=== PATIENT | female | born 1935 | race Caucasian/White ===

== ENCOUNTER 2016-12-01 01:27 | Inpatient (IN) | payer MEDICARE ==
--- NOTE | ~2016-12-01 | DS ---
Discharge Summary [facility] [address] [place]. [address] NAME: RUKHSANA ROSE : 37 STATUS : ADM IN [facility]#: [id number] AGE: 81 ADM/REG DATE : 12/01/16 MR#: [id number] REPORT SERV DATE: 12/08/16 DICTATED BY: KARINA BURGESS DATE: 12/07/16 REPORT STATUS : Draft TRANSCRIBED BY: MODL DATE: 12/07/16 ADMISSION DATE: 12/01/2016 DISCHARGE DATE: The patient is a 81-year-old female with a history of heart failure with preserved EF, pulmonary hypertension, and COPD, who presented to the hospital on 12/01/2016, with a complaint of shortness of breath and altered mental status. For further details, please refer to H and P dictated by Dr. Cortez on 12/01/2016. Resumed care of the patient on 12/05/2016. HOSPITAL COURSE: Briefly, the patient was brought to the emergency room with a complaint of altered mental status and shortness of breath. The patient has a history of chronic respiratory failure for which she is on home oxygen. At the time of presentation, the patient was diagnosed with sepsis secondary to pneumonia. She was started on antibiotics vancomycin and meropenem. The patient responded very well to antibiotics with significant improvement and eventual resolution of her sepsis. At the time of my assumption of care, the patient no longer met criteria for sepsis; however, she did meet criteria for SIRS. Also, her antibiotics had been de-escalated to Levaquin 75 mg p.o. daily. Also, at the time of my assumption of care, the patient was no longer altered. She was alert and oriented x3. The patient was continued on the p.o. antibiotics to complete a seven-day course of antibiotic therapy. Also, given a PT evaluation, it was recommended that the patient be discharged to subacute rehab/assisted facility. The patient has been approved for discharge. Also, her oxygen requirement has returned to baseline. Also, as part of her presenting symptoms, the patient was also managed for COPD exacerbation. She was placed on Solu-Medrol, which she responded to appropriately. Her medication has gradually been titrated right now. The patient has been titrated down to prednisone 40 mg p.o. daily. She will be discharged on prednisone 20 mg p.o. daily to complete a five-day course outpatient. On physical exam, her significant improvement in her lung exam has been noted. Given significant improvement in her symptoms, given completion of workup, and given her hemodynamic stability, the patient will be discharged to assisted facility today to complete her antibiotic course and also her course of steroids. Her other chronic medical problems were addressed during her hospitalization here. This plan has been discussed with the patient who voices understanding and is agreeable as agreeable with this plan. Of note, the patient is easily wanting to be discharged today PE. DISCHARGE DIAGNOSES: 1. Chronic obstructive pulmonary disease exacerbation. 2. Acute on chronic respiratory failure. 3. Obstructive sleep apnea on CPAP. 4. Chronic back pain. 5. Obesity. 6. Leukocytosis. DISCHARGE PHYSICAL EXAMINATION: VITAL SIGNS: Blood pressure 156/86 with a pulse of 84, respirations 16, O2 sat of 99% on 2 L nasal cannula, temperature 98.0. GENERAL: The patient is sitting in bed, in no acute distress. Appears stated age. Discharge Summary [address] [address] NAME: RUKHSANA ROSE : 37 STATUS : ADM IN [facility]#: [id number] AGE: 81 ADM/REG DATE : 12/01/16 MR#: [id number] REPORT SERV DATE: 12/08/16 DICTATED BY: KARINA BURGESS DATE: 12/07/16 REPORT STATUS : Draft TRANSCRIBED BY: DANIELITO DATE: 12/07/16 HEENT: Normocephalic, atraumatic. Extraocular motors intact. Oral mucosa moist. NECK: Trachea midline and symmetric. No JVD noted. No thyromegaly present. CHEST: Nontender to palpation. CARDIOVASCULAR: Regular rate and rhythm. I do not appreciate any murmurs. LUNGS: Decreased breath sounds noted globally; however, no rhonchi or wheezes present. ABDOMEN: Obese. Positive bowel sounds. Nontender. Nondistended. EXTREMITIES: No cyanosis. No clubbing. No pitting edema present. NEUROLOGIC: Alert and oriented x3. No focal deficits appreciated. DISCHARGE MEDICATIONS: Amlodipine 5 mg p.o. daily, aspirin 81 mg p.o. daily, carvedilol 3.125 mg p.o. twice a day, Cardura 1 mg p.o. daily, Zantac 150 mg p.o. daily, furosemide 40 mg p.o. daily, Barton one tablet p.o. every six hours p.r.n., pantoprazole 40 mg p.o. daily, Florastor 250 mg p.o. twice a day, spironolactone 25 mg p.o. daily, senna two tablets p.o. at bedtime, prednisone 20 mg p.o. daily for five days, Ventolin two puffs inhalation every four hours p.r.n. IMAGING STUDIES: CT chest without contrast. Impression: Persistent pulmonary hyperinflation with bronchiectasis and bronchovascular thickening similar to the appearance of lung bases November 05. No acute infiltrate in the superior lungs on transthoracic echo. DISPOSITION: The patient will be discharged to assisted facility. ACTIVITY: As tolerated. DIET: Regular diet. Greater than 30 minutes was spent on chart review, dictation of note, medication reconciliation, discussion of care with case management, and coordinating with discharge. RITA/DANIELITO Karina Burgess MD / [id number] CC: MD Kay Bai
--- NOTE | ~2016-12-01 | HP ---
History And Physical [facility] [address] [facility] [place]. [address] NAME: RUKHSANA ROSE : 37 STATUS : ADM IN [facility]#: [id number] AGE: 81 ADM/REG DATE : 12/01/16 MR#: [id number] REPORT SERV DATE: 12/01/16 DICTATED BY: KWABENA CRUZ DATE: 12/01/16 REPORT STATUS : Draft TRANSCRIBED BY: MODL DATE: 12/01/16 DATE OF ADMISSION: 12/01/2016 CHIEF COMPLAINT: Shortness of breath, weakness, and altered mental status. HISTORY OF PRESENT ILLNESS: This is a 81-year-old female, a resident at [facility] facility in [facility] with a history of MRSA pneumonias, ESBL E coli infections, chronic diastolic congestive heart failure, pulmonary hypertension, who was sent to the emergency room at [facility] with the above-mentioned complaint. History is obtained from the patient, but more so from transfer records and reviewing records on the [employer] system. According to available data, Ms. Rose was confused today. She had a fever and was very weak, and given her past history of recurrent pneumonias and urinary tract infection, the patient was sent to the emergency room for further evaluation. In the emergency room, she had a pulmonary infiltrate seen on x-ray, had hypoxemia, metabolic and respiratory alkalosis, uncontrolled hypertension, and sepsis. Hospitalist Service was asked to admit her for further evaluation and treatment. At the time of my evaluation, she denied any chest pain or palpitations, although she was very unreliable due to dementia. She had no idea what had happened today and was unable to give any reliable history. However, she was very conversant and replied appropriately. PAST MEDICAL HISTORY: Significant for history of atrial fibrillation, not on anticoagulation; history of essential hypertension; COPD; CLL; chronic pain; history of ESBL E coli in the past; history of MRSA pneumonias in the past. She also has chronic diastolic congestive heart failure, pulmonary arterial hypertension, nonsustained ventricular tachycardia with a normal ejection fraction as seen on echo. SOCIAL HISTORY: She does not smoke, drink, or use recreational drugs. FAMILY HISTORY: Noncontributory. MEDICATIONS: Her medications at home were reviewed by me in the chart today and reordered by me. REVIEW OF SYSTEMS: As in history of present illness. All other systems were reviewed in detail and are quite unremarkable. PHYSICAL EXAMINATION: GENERAL: This is a pleasant 81-year-old, not in any acute distress. HEENT: Her head is atraumatic, normocephalic. She is alert and awake, but not oriented to time, place, or person. Her pupils are equal, reacting to light and accommodating. External ocular muscles are intact. Membranes are moist and pink. Sclerae are nonicteric. History And Physical [address] [address] NAME: RUKHSANA ROSE : 37 STATUS : ADM IN [facility]#: [id number] AGE: 81 ADM/REG DATE : 12/01/16 MR#: [id number] REPORT SERV DATE: 12/01/16 DICTATED BY: KWABENA CRUZ DATE: 12/01/16 REPORT STATUS : Draft TRANSCRIBED BY: DANIELITO DATE: 12/01/16 NECK: Supple with no jugular venous distention, lymphadenopathy, or thyromegaly. LUNGS: Auscultation of her lungs reveal bibasilar crackles with few expiratory wheezes as well. Trachea appeared to be in the midline. HEART: Auscultation of her heart revealed irregular rate and rhythm with no murmurs, rubs, or gallops appreciated. ABDOMEN: Soft, nontender. Bowel sounds are present. EXTREMITIES: Showed bilateral pitting lower extremity edema with no cyanosis or clubbing. NEUROLOGIC: Appeared to be grossly intact, although she does have some encephalopathy. VITAL SIGNS: Today showed a temperature of 99.3 degrees Fahrenheit, but was 101.8 upon arrival. Her pulse was 123 upon arrival. Respirations were 26 and blood pressure upon arrival was 182/80. Oxygen saturations were 93% on 3 L via nasal cannula. LABORATORY DATA: Reviewed on the [employer] system showed pH of 7.48, pCO2 was 42, PaO2 was 68, and bicarb was 30.1. Her procalcitonin was 0.30. Sodium was 138, potassium 4.4, chloride 94, and CO2 of 32. BUN was 31 with a creatinine of 1.08 and blood glucose was 150. Her alkaline phosphatase was 131. ALT and AST were within normal limits. Troponin today was 0.05. BNP was 207.3. Lactate was 1.9 today. [place] [address]. Hemoglobin, hematocrit, and platelet count were within normal limits. Urinalysis was not done today. Films of the chest x-ray were reviewed by me on the PACS today and interpreted by me. Today's films were compared with prior films available on the PACS as well. There is increased congestion with right middle lobe and right lower lobe infiltrates. There is cardiomegaly as well. A 12-lead EKG done in the emergency room was reviewed and interpreted by me. There is atrial fibrillation with at rate of 100 per minute. IMPRESSION: 1. Shortness of breath. 2. Altered mental status. 3. Sepsis by criteria. 4. Right lower lobe pneumonia, possibly healthcare-associated pneumonia. 5. Hypoxemia. 6. Uncontrolled hypertension. 7. Metabolic and respiratory alkalosis. 8. Atrial fibrillation. 9. Chronic obstructive pulmonary disease. 10.Chronic lymphocytic leukemia. 11.Chronic pain. 12.Chronic diastolic congestive heart failure. 13.Pulmonary arterial hypertension. PLAN: We will admit Ms. Rose to the Hospitalist Service with telemetry for close monitoring. After cultures are drawn, we will start her on empiric IV antibiotics for the healthcare-associated pneumonia. Due to her allergy to penicillin, we will start her on vancomycin and cefepime. We will follow Gram stains, cultures, and adjust accordingly. Meanwhile, we will go ahead and get a procalcitonin, lactate, and cortisol level. We will max up bronchodilator treatments, continue supplemental oxygen therapy, and also control her blood pressure with hydralazine given intravenously on an as needed basis. Meanwhile, we History And Physical [address] [address] NAME: RUKHSANA ROSE : 37 STATUS : ADM IN [facility]#: [id number] AGE: 81 ADM/REG DATE : 12/01/16 MR#: [id number] REPORT SERV DATE: 12/01/16 DICTATED BY: KWABENA CRUZ DATE: 12/01/16 REPORT STATUS : Draft TRANSCRIBED BY: DANIELITO DATE: 12/01/16 will continue her home medications. We will start her on IV fluids. Follow chemistry, electrolytes, and replete as needed. We will also place her on DVT prophylaxis while here. I have discussed above plans with the patient, her questions were answered, and she is agreeable to the above recommendations. Hospitalist Service will be following her during her stay here. /DANIELITO Kwabena Cruz M.D. / [id number] CC: Mark Morrison MD
[2016-12-01 00:39] LABS: BE (BASE EXCESS) 6.7 MEQ/L (0 +/- 2.5); HCO3 (ACTUAL BICARBONATE) 30.1 MEQ/L (23-27); HEMOBLOGIN CONTENT 12.7 G/DL (12-16); INSTRUMENT SERIAL # 8087; METHEMOGLOBIN 0.3 % (0-3); O2 CONTENT 16.1 VOL% (18-24); OPERATOR ID 17589; PCO2 (CO2 TENSION) 42 MMHG (35-45); PO2 (O2 TENSION) 68 MMHG (79-93); SAMPLE Arterial; pH 7.48 (7.37-7.43)
[2016-12-01 00:40] LABS: ALLENS TEST Pos; DEVICE Nasal Cannula @ 6 lp
[~2016-12-01 01:27] MED LIST: *UNABLE1; ALBUTEROL5; ASAB PO; ATROVENTUD INH; BROVANA15 MCG INH; CARDURA1 MG PO; COREG3 PO; FLORASTOR250 MG PO; IMOD PO; K500 PO; L40 PO; MUCINEX600 MG PO; MYCOSCROI TOP; NORCO1 TA1 PO; NORV5 PO; P10 PO; P20 PO; PERCOCET 7.5/321 TAB PO; PRIN20 PO; PROTONIX PO; PROVENTSOL INH; PULRESP.5 INH; SPIRO25 PO; T PO; TESS PO; V5 PO; VENTOLIN HFA INH; X5 PO; ZANTAC150 MG PO; ZOFRAN4 PO
[2016-12-01 01:41] LABS: BASOPHILS 0.2 %; BASOPHILS ABSOLUTE 0.05 10/3/uL (0.0-0.16); EOSINOPHILS 0.6 %; EOSINOPHILS ABSOLUTE 0.17 10/3/uL (0.0-0.53); IMMATURE GRANULOCYTES 0.8 %; IMMATURE GRANULOCYTES ABSOLUTE 0.21 10/3/uL (0.0-0.11); LYMPHOCYTES 24.3 %; LYMPHOCYTES ABSOLUTE 6.42 10/3/uL (0.67-4.30); MEAN CORPUS HGB CONC 32.1 g/dL (32.0-36.0); MEAN CORPUSCULAR HEMOGLOB 27.6 pg (26.0-34.0); MEAN CORPUSCULAR VOLUME 85.8 fL (80-100); MEAN PLATELET VOLUME 10.2 fL (9.2-13.0); MONOCYTES 2.9 %; MONOCYTES ABSOLUTE 0.77 10/3/uL (0.21-1.20); NEUTROPHILS 71.2 %; NEUTROPHILS ABSOLUTE 18.77 10/3/uL (2.02-8.40); PLATELET COUNT 231 10/3/uL (150-400); RBC DISTRIBUTION WIDTH 16.2 % (12.0-16.0)
[2016-12-01 01:44] LABS: INFLUENZA A SCREEN NEGATIVE (NEGATIVE); INFLUENZA B SCREEN NEGATIVE (NEGATIVE)
[2016-12-01 01:45] LABS: ER CBC TAT 0 Hrs 18 Mins; HEMATOCRIT 41.1 % (36.0-48.0); HEMOGLOBIN 13.2 g/dL (12.0-16.0); RED CELL COUNT 4.79 10/6/uL (4.0-5.6); WHITE BLOOD CELLS 26.4 10/3/uL (4.5-10.5)
[2016-12-01 01:46] LABS: MANUAL DIFF NO %
[2016-12-01 01:52] LABS: INTERNATIONAL NORMAL RATI 1.1 UNITS (-); PROTIME (NOT ORD) 14.2 SEC (12.0-14.5)
[2016-12-01 01:53] LABS: PARTIAL THROMBO TIME 30.8 SEC (22.5-37.2)
[2016-12-01 02:02] LABS: ALBUMIN 3.5 G/DL (3.5-5.0); ALKALINE PHOSPHATASE 131 U/L (45-117); BUN (BLOOD UREA NITROGEN) 31 MG/DL (6-23); CHLORIDE, SERUM 94 MMOL/L (96-112); CO2 (CARBON DIOXIDE) 32 MMOL/L (24-34); CREATININE 1.08 MG/DL (0.55-1.02); DIRECT BILIRUBIN 0.2 MG/DL (0.0-0.4); GFR AFRICAN AMERICAN 57 ML/MIN (>=60); GFR NON AFRICAN AMERICAN 49 ML/MIN (>=60); GLUCOSE, SERUM 150 MG/DL (60-99); INDIRECT BILIRUBIN(NOT ORDER) 0.7 MG/DL (0.1-0.9); POTASSIUM, SERUM 4.4 MMOL/L (3.5-5.3); SGOT(AST) 10 U/L (5-40); SGPT(ALT) 23 U/L (5-65); SODIUM, SERUM 138 MMOL/L (135-148); TOTAL BILIRUBIN 0.9 MG/DL (0-1.2)
[2016-12-01 02:03] LABS: CHEST PAIN PROFILE TAT 0 Hrs 36 Mins; TROPONIN I 0.05 NG/ML (<0.05)
[2016-12-01 02:07] LABS: BAND NEUTROPHILS 8 %; ER DIFF TAT 0 Hrs 40 Mins; LYMPHOCYTES 16 %; LYMPHOCYTES ABSOLUTE (CALC) 4.22 10/3/uL (0.67-4.30); MONOCYTES 4 %; MONOCYTES ABSOLUTE (CALC) 1.06 10/3/uL (0.21-1.20); NEUTROPHILS ABSOLUTE (CALC) 21.12 10/3/uL (2.02-8.40); SEGMENTED NEUTROPHIL (0) 72 %; TOTAL NUCLEATED CELLS 100
[2016-12-01 02:08] LABS: GIANT PLATELET FEW; RBC MORPHOLOGY ABN (NORMAL)
[2016-12-01] MEDS ORDERED: NORV5 PO (02:16)
[2016-12-01] MEDS ORDERED: ASAB PO (02:16)
[2016-12-01] MEDS ORDERED: COREG3 PO (02:17)
[2016-12-01] MEDS ORDERED: CARDURA1 MG PO (02:17)
[2016-12-01] MEDS ORDERED: PERCOCET 7.5/321 TAB PO (02:18)
[2016-12-01] MEDS ORDERED: L40 PO (02:18)
[2016-12-01] MEDS ORDERED: FLORASTOR250 MG PO (02:18)
[2016-12-01] MEDS ORDERED: PROTONIX PO (02:19)
[2016-12-01] MEDS ORDERED: ZANTAC 150 PO (02:20)
[2016-12-01] MEDS ORDERED: P20 PO (02:20)
[2016-12-01] MEDS ORDERED: SPIRO25 PO (02:20)
[2016-12-01] MEDS ORDERED: TESS PO (02:20)
[2016-12-01] MEDS ORDERED: BISR PR (02:21)
[2016-12-01] MEDS ORDERED: V2 PO (02:21)
[2016-12-01] MEDS ORDERED: MOMUD PO (02:21)
[2016-12-01] MEDS ORDERED: NORCO1 TA2 PO (02:21)
[2016-12-01] MEDS ORDERED: ZOFRAN4 PO (02:22)
[2016-12-01] MEDS ORDERED: VENTOLIN HFA INH (02:22)
[2016-12-01 07:08] LABS: BASOPHILS 0.1 %; BASOPHILS ABSOLUTE 0.03 10/3/uL (0.0-0.16); EOSINOPHILS 0.4 %; EOSINOPHILS ABSOLUTE 0.09 10/3/uL (0.0-0.53); HEMOGLOBIN 10.9 g/dL (12.0-16.0); IMMATURE GRANULOCYTES ABSOLUTE 0.22 10/3/uL (0.0-0.11); LYMPHOCYTES 16.3 %; LYMPHOCYTES ABSOLUTE 3.65 10/3/uL (0.67-4.30); MEAN CORPUS HGB CONC 32.4 g/dL (32.0-36.0); MEAN CORPUSCULAR HEMOGLOB 27.6 pg (26.0-34.0); MEAN CORPUSCULAR VOLUME 85.1 fL (80-100); MEAN PLATELET VOLUME 9.9 fL (9.2-13.0); MONOCYTES 2.4 %; MONOCYTES ABSOLUTE 0.54 10/3/uL (0.21-1.20); NEUTROPHILS 79.8 %; NEUTROPHILS ABSOLUTE 17.85 10/3/uL (2.02-8.40); PLATELET COUNT 200 10/3/uL (150-400); RBC DISTRIBUTION WIDTH 16.3 % (12.0-16.0); RED CELL COUNT 3.95 10/6/uL (4.0-5.6); WHITE BLOOD CELLS 22.4 10/3/uL (4.5-10.5)
[2016-12-01 07:12] LABS: BUN (BLOOD UREA NITROGEN) 28 MG/DL (6-23); CALCIUM, SERUM 9.2 MG/DL (8.5-10.4); CHLORIDE, SERUM 100 MMOL/L (96-112); CO2 (CARBON DIOXIDE) 29 MMOL/L (24-34); CREATININE 0.89 MG/DL (0.55-1.02); GFR AFRICAN AMERICAN 71 ML/MIN (>=60); GFR NON AFRICAN AMERICAN 62 ML/MIN (>=60); GLUCOSE, SERUM 193 MG/DL (60-99); PHOSPHORUS, SERUM 2.5 MG/DL (2.5-4.5); POTASSIUM, SERUM 4.1 MMOL/L (3.5-5.3); SODIUM, SERUM 138 MMOL/L (135-148)
[2016-12-01 07:13] LABS: HEMATOCRIT 33.6 % (36.0-48.0)
[2016-12-01 07:14] LABS: MANUAL DIFF NO %
[2016-12-01 09:01] LABS: PROCALCITONIN 0.68 ng/mL (<0.5)
[2016-12-01 21:16] LABS: ASCORBIC ACID (UR NOT ORDER) NEG (NEG); BILIRUBIN, URINE NEGATIVE (NEG); ER URINALYSIS TAT 0 Hrs 36 Mins; KETONE, URINE NEGATIVE (NEG); LEUKOCYTE ESTERASE(NOT OR LARGE (NEG); NITRITE (URINE) NEG (NEG); WBC (NOT ORDERED) (RFLEX) 105 (0-5)
[2016-12-02 10:30] LABS: ALBUMIN 2.9 G/DL (3.5-5.0); BUN (BLOOD UREA NITROGEN) 32 MG/DL (6-23); CALCIUM, SERUM 9.4 MG/DL (8.5-10.4); CHLORIDE, SERUM 95 MMOL/L (96-112); CO2 (CARBON DIOXIDE) 28 MMOL/L (24-34); CREATININE 1.08 MG/DL (0.55-1.02); GFR AFRICAN AMERICAN 57 ML/MIN (>=60); GFR NON AFRICAN AMERICAN 49 ML/MIN (>=60); GLUCOSE, SERUM 322 MG/DL (60-99); POTASSIUM, SERUM 3.4 MMOL/L (3.5-5.3); SODIUM, SERUM 136 MMOL/L (135-148)
[2016-12-02 10:34] LABS: BASOPHILS 0.1 %; BASOPHILS ABSOLUTE 0.01 10/3/uL (0.0-0.16); EOSINOPHILS 0 %; HEMATOCRIT 32.8 % (36.0-48.0); HEMOGLOBIN 10.7 g/dL (12.0-16.0); IMMATURE GRANULOCYTES 0.6 %; LYMPHOCYTES 12.8 %; LYMPHOCYTES ABSOLUTE 2.23 10/3/uL (0.67-4.30); MEAN CORPUS HGB CONC 32.6 g/dL (32.0-36.0); MEAN CORPUSCULAR HEMOGLOB 27.4 pg (26.0-34.0); MEAN CORPUSCULAR VOLUME 83.9 fL (80-100); MEAN PLATELET VOLUME 10.2 fL (9.2-13.0); MONOCYTES 1.3 %; MONOCYTES ABSOLUTE 0.22 10/3/uL (0.21-1.20); NEUTROPHILS 85.2 %; NEUTROPHILS ABSOLUTE 14.91 10/3/uL (2.02-8.40); PLATELET COUNT 225 10/3/uL (150-400); RBC DISTRIBUTION WIDTH 15.8 % (12.0-16.0); RED CELL COUNT 3.91 10/6/uL (4.0-5.6); WHITE BLOOD CELLS 17.5 10/3/uL (4.5-10.5)
[2016-12-02 10:35] LABS: MANUAL DIFF NO %
[2016-12-02 11:26] LABS: PLATELET ESTIMATE ADQ (ADEQUATE)
[2016-12-02 11:27] LABS: POLYCHROMASIA 1+ (2-5/OIF) (0-1/OIF); TEARDROP SHAPED RBCS OCC (0-2/OIF)
[2016-12-03 09:52] LABS: BASOPHILS 0 %; EOSINOPHILS 0 %; HEMATOCRIT 31.9 % (36.0-48.0); HEMOGLOBIN 10.6 g/dL (12.0-16.0); IMMATURE GRANULOCYTES 0.4 %; IMMATURE GRANULOCYTES ABSOLUTE 0.07 10/3/uL (0.0-0.11); LYMPHOCYTES 10.6 %; LYMPHOCYTES ABSOLUTE 1.68 10/3/uL (0.67-4.30); MEAN CORPUS HGB CONC 33.2 g/dL (32.0-36.0); MEAN CORPUSCULAR HEMOGLOB 27.7 pg (26.0-34.0); MEAN CORPUSCULAR VOLUME 83.5 fL (80-100); MEAN PLATELET VOLUME 9.7 fL (9.2-13.0); MONOCYTES ABSOLUTE 0.16 10/3/uL (0.21-1.20); NEUTROPHILS ABSOLUTE 13.96 10/3/uL (2.02-8.40); PLATELET COUNT 237 10/3/uL (150-400); RBC DISTRIBUTION WIDTH 15.6 % (12.0-16.0); RED CELL COUNT 3.82 10/6/uL (4.0-5.6); WHITE BLOOD CELLS 15.9 10/3/uL (4.5-10.5)
[2016-12-03 09:53] LABS: MANUAL DIFF NO %
[2016-12-03 10:04] LABS: ALBUMIN 2.9 G/DL (3.5-5.0); CALCIUM, SERUM 9.5 MG/DL (8.5-10.4); CHLORIDE, SERUM 94 MMOL/L (96-112); CO2 (CARBON DIOXIDE) 32 MMOL/L (24-34); CREATININE 1.16 MG/DL (0.55-1.02); GFR AFRICAN AMERICAN 52 ML/MIN (>=60); GFR NON AFRICAN AMERICAN 45 ML/MIN (>=60); GLUCOSE, SERUM 279 MG/DL (60-99); PHOSPHORUS, SERUM 3.6 MG/DL (2.5-4.5); POTASSIUM, SERUM 3.2 MMOL/L (3.5-5.3); SODIUM, SERUM 137 MMOL/L (135-148)
[2016-12-03 10:05] LABS: BUN (BLOOD UREA NITROGEN) 37 MG/DL (6-23)
[2016-12-04 07:05] LABS: BASOPHILS 0.1 %; BASOPHILS ABSOLUTE 0.01 10/3/uL (0.0-0.16); EOSINOPHILS 0 %; HEMATOCRIT 31.3 % (36.0-48.0); HEMOGLOBIN 10.2 g/dL (12.0-16.0); IMMATURE GRANULOCYTES 0.8 %; LYMPHOCYTES 14.2 %; LYMPHOCYTES ABSOLUTE 1.87 10/3/uL (0.67-4.30); MANUAL DIFF NO %; MEAN CORPUS HGB CONC 32.6 g/dL (32.0-36.0); MEAN CORPUSCULAR HEMOGLOB 27.3 pg (26.0-34.0); MEAN CORPUSCULAR VOLUME 83.9 fL (80-100); MEAN PLATELET VOLUME 9.6 fL (9.2-13.0); MONOCYTES 1.7 %; MONOCYTES ABSOLUTE 0.23 10/3/uL (0.21-1.20); NEUTROPHILS 83.2 %; PLATELET COUNT 221 10/3/uL (150-400); RBC DISTRIBUTION WIDTH 15.6 % (12.0-16.0); RED CELL COUNT 3.73 10/6/uL (4.0-5.6); WHITE BLOOD CELLS 13.2 10/3/uL (4.5-10.5)
[2016-12-04 07:11] LABS: ALBUMIN 2.7 G/DL (3.5-5.0); CALCIUM, SERUM 9.2 MG/DL (8.5-10.4); CHLORIDE, SERUM 95 MMOL/L (96-112); CO2 (CARBON DIOXIDE) 31 MMOL/L (24-34); CREATININE 1.17 MG/DL (0.55-1.02); GFR AFRICAN AMERICAN 51 ML/MIN (>=60); GFR NON AFRICAN AMERICAN 44 ML/MIN (>=60); GLUCOSE, SERUM 293 MG/DL (60-99); PHOSPHORUS, SERUM 2.9 MG/DL (2.5-4.5); POTASSIUM, SERUM 3.4 MMOL/L (3.5-5.3); SODIUM, SERUM 138 MMOL/L (135-148); VANCOMYCIN TROUGH 16.7 MCG/ML (10.0-20.0)
[2016-12-04 07:12] LABS: BUN (BLOOD UREA NITROGEN) 42 MG/DL (6-23)
[2016-12-05 06:22] LABS: BASOPHILS 0.1 %; BASOPHILS ABSOLUTE 0.01 10/3/uL (0.0-0.16); EOSINOPHILS 0 %; HEMOGLOBIN 10.7 g/dL (12.0-16.0); IMMATURE GRANULOCYTES 2.1 %; IMMATURE GRANULOCYTES ABSOLUTE 0.22 10/3/uL (0.0-0.11); LYMPHOCYTES 17.1 %; LYMPHOCYTES ABSOLUTE 1.81 10/3/uL (0.67-4.30); MANUAL DIFF NO %; MEAN CORPUS HGB CONC 32.4 g/dL (32.0-36.0); MEAN CORPUSCULAR HEMOGLOB 27.3 pg (26.0-34.0); MEAN CORPUSCULAR VOLUME 84.2 fL (80-100); MEAN PLATELET VOLUME 9.3 fL (9.2-13.0); MONOCYTES 2.9 %; MONOCYTES ABSOLUTE 0.31 10/3/uL (0.21-1.20); NEUTROPHILS 77.8 %; NEUTROPHILS ABSOLUTE 8.23 10/3/uL (2.02-8.40); PLATELET COUNT 211 10/3/uL (150-400); RBC DISTRIBUTION WIDTH 15.4 % (12.0-16.0); RED CELL COUNT 3.92 10/6/uL (4.0-5.6); WHITE BLOOD CELLS 10.6 10/3/uL (4.5-10.5)
[2016-12-05 06:33] LABS: CALCIUM, SERUM 9.5 MG/DL (8.5-10.4); CHLORIDE, SERUM 96 MMOL/L (96-112); CO2 (CARBON DIOXIDE) 32 MMOL/L (24-34); CREATININE 0.91 MG/DL (0.55-1.02); GFR AFRICAN AMERICAN 70 ML/MIN (>=60); GFR NON AFRICAN AMERICAN 60 ML/MIN (>=60); SODIUM, SERUM 137 MMOL/L (135-148)
[2016-12-05 06:34] LABS: BUN (BLOOD UREA NITROGEN) 35 MG/DL (6-23); GLUCOSE, SERUM 210 MG/DL (60-99)
[2016-12-06 06:44] LABS: BASOPHILS 0.2 %; BASOPHILS ABSOLUTE 0.03 10/3/uL (0.0-0.16); EOSINOPHILS 0 %; HEMATOCRIT 34.6 % (36.0-48.0); HEMOGLOBIN 11.4 g/dL (12.0-16.0); IMMATURE GRANULOCYTES 2.2 %; IMMATURE GRANULOCYTES ABSOLUTE 0.28 10/3/uL (0.0-0.11); LYMPHOCYTES 17.4 %; MANUAL DIFF NO %; MEAN CORPUS HGB CONC 32.9 g/dL (32.0-36.0); MEAN CORPUSCULAR HEMOGLOB 27.4 pg (26.0-34.0); MEAN CORPUSCULAR VOLUME 83.2 fL (80-100); MEAN PLATELET VOLUME 9.4 fL (9.2-13.0); MONOCYTES 2.6 %; MONOCYTES ABSOLUTE 0.33 10/3/uL (0.21-1.20); NEUTROPHILS 77.6 %; NEUTROPHILS ABSOLUTE 9.79 10/3/uL (2.02-8.40); PLATELET COUNT 224 10/3/uL (150-400); RBC DISTRIBUTION WIDTH 15.3 % (12.0-16.0); RED CELL COUNT 4.16 10/6/uL (4.0-5.6); WHITE BLOOD CELLS 12.6 10/3/uL (4.5-10.5)
[2016-12-06 07:01] LABS: ALBUMIN 2.9 G/DL (3.5-5.0); CALCIUM, SERUM 9.8 MG/DL (8.5-10.4); CHLORIDE, SERUM 93 MMOL/L (96-112); CO2 (CARBON DIOXIDE) 34 MMOL/L (24-34); CREATININE 1.01 MG/DL (0.55-1.02); GFR AFRICAN AMERICAN 61 ML/MIN (>=60); GFR NON AFRICAN AMERICAN 53 ML/MIN (>=60); GLUCOSE, SERUM 177 MG/DL (60-99); POTASSIUM, SERUM 3.5 MMOL/L (3.5-5.3); SGOT(AST) 8 U/L (5-40); SGPT(ALT) 17 U/L (5-65); SODIUM, SERUM 138 MMOL/L (135-148); TOTAL PROTEIN 5.9 G/DL (6.0-8.5)
[2016-12-06 07:05] LABS: ALKALINE PHOSPHATASE 88 U/L (45-117); BUN (BLOOD UREA NITROGEN) 39 MG/DL (6-23); TOTAL BILIRUBIN 0.4 MG/DL (0-1.2)
[2016-12-07 06:58] LABS: BASOPHILS 0.2 %; BASOPHILS ABSOLUTE 0.03 10/3/uL (0.0-0.16); EOSINOPHILS 0 %; HEMOGLOBIN 10.9 g/dL (12.0-16.0); IMMATURE GRANULOCYTES 2.4 %; IMMATURE GRANULOCYTES ABSOLUTE 0.37 10/3/uL (0.0-0.11); LYMPHOCYTES 23.2 %; LYMPHOCYTES ABSOLUTE 3.51 10/3/uL (0.67-4.30); MEAN CORPUS HGB CONC 32.1 g/dL (32.0-36.0); MEAN CORPUSCULAR HEMOGLOB 26.5 pg (26.0-34.0); MEAN CORPUSCULAR VOLUME 82.7 fL (80-100); MEAN PLATELET VOLUME 9.6 fL (9.2-13.0); MONOCYTES 3.8 %; MONOCYTES ABSOLUTE 0.57 10/3/uL (0.21-1.20); NEUTROPHILS 70.4 %; NEUTROPHILS ABSOLUTE 10.67 10/3/uL (2.02-8.40); PLATELET COUNT 234 10/3/uL (150-400); RBC DISTRIBUTION WIDTH 15.7 % (12.0-16.0); RED CELL COUNT 4.11 10/6/uL (4.0-5.6); WHITE BLOOD CELLS 15.2 10/3/uL (4.5-10.5)
[2016-12-07 06:59] LABS: MANUAL DIFF NO %
[2016-12-07 07:11] LABS: A/G RATIO 0.9 (0.7-1.9); ALBUMIN 2.7 G/DL (3.5-5.0); ALKALINE PHOSPHATASE 91 U/L (45-117); BUN (BLOOD UREA NITROGEN) 46 MG/DL (6-23); CALCIUM, SERUM 9.5 MG/DL (8.5-10.4); CHLORIDE, SERUM 92 MMOL/L (96-112); CO2 (CARBON DIOXIDE) 31 MMOL/L (24-34); CREATININE 1.09 MG/DL (0.55-1.02); GFR AFRICAN AMERICAN 56 ML/MIN (>=60); GFR NON AFRICAN AMERICAN 48 ML/MIN (>=60); GLOBULIN 2.9 G/DL (2.5-4.1); GLUCOSE, SERUM 282 MG/DL (60-99); SGPT(ALT) 18 U/L (5-65); SODIUM, SERUM 135 MMOL/L (135-148); TOTAL BILIRUBIN 0.2 MG/DL (0-1.2); TOTAL PROTEIN 5.6 G/DL (6.0-8.5)
[2016-12-07 07:12] LABS: SGOT(AST) 12 U/L (5-40)
[2016-12-07] MEDS ORDERED: D.O.S.100 MG PO (14:57)
[2016-12-07] MEDS ORDERED: SENTAB PO (14:58)
[2017-01-15] MEDS ORDERED: DUONEB INH (11:46)
[2017-01-15] MEDS ORDERED: MUCINEX1200 MG PO (11:47)
[2017-01-15] MEDS ORDERED: BROVANA15 MCG INH (11:47)
[2017-01-15] MEDS ORDERED: BUDESONIDE INH (11:51)
[2017-01-15] MEDS ORDERED: ACIDOPHILU2 PO (11:53)
[2017-01-15] MEDS ORDERED: P5 PO (11:54)
[2017-01-15] MEDS ORDERED: HUMALOG SC (11:55)
[2017-01-15] MEDS ORDERED: LEVEMIR SC ×2 (11:56→11:57)
[2017-01-15] MEDS ORDERED: LOVENOX40 SC (11:57)
[2017-01-15] MEDS ORDERED: MIRALAX POWDER1 PKT PO (12:01)
[2017-01-21] MEDS ORDERED: VIBRATAB100 MG PO (15:52)
[2017-01-21] MEDS ORDERED: P10 PO (15:53)
[2017-01-21] MEDS ORDERED: KDUR10 PO (15:53)
[2017-01-21] MEDS ORDERED: MONUROL PO (15:53)
[2017-01-21] MEDS ORDERED: SEROQUEL25 PO (15:54)
[2017-01-21] MEDS ORDERED: CARDCD120 PO (15:54)
[2017-01-21] MEDS ORDERED: MYCOSCROI TOP (15:55)
[2017-01-21] MEDS ORDERED: DUONEB INH (15:59)
== END 2016-12-07 22:05 | disposition home health service (06) | DRG 871 ==
LOC: ER 01:27 → 2SO 03:16
PROVIDERS: Emergency Medicine; Hospitalist; Internal Medicine Pulmonary Disease
DX: A41.9 Sepsis, unspecified organism (principal); J96.21 Acute and chronic respiratory failure with hypoxia; I47.2 Ventricular tachycardia; E87.4 Mixed disorder of acid-base balance; C91.10 Chronic lymphocytic leukemia of B-cell type not having achieved remission; I11.0 Hypertensive heart disease with heart failure; J18.9 Pneumonia, unspecified organism; G92 Toxic encephalopathy; I50.32 Chronic diastolic (congestive) heart failure; J44.1 Chronic obstructive pulmonary disease with (acute) exacerbation; R65.20 Severe sepsis without septic shock; I48.2 Chronic atrial fibrillation; G89.29 Other chronic pain; E66.9 Obesity, unspecified; G47.33 Obstructive sleep apnea (adult) (pediatric); E11.9 Type 2 diabetes mellitus without complications; M54.9 Dorsalgia, unspecified; I27.2 Other secondary pulmonary hypertension; Z87.01 Personal history of pneumonia (recurrent); Z68.38 Body mass index [BMI] 38.0-38.9, adult
CPT/HCPCS: 36600; 71010; 71250; 80048; 80053; 80069; 80076; 80202; 81001; 82533; 82805; 82962; 83036; 83605; 83735; 83880; 84100; 84145; 84484; 85025; 85610; 85730; 87040; 87086; 87804; 93005; 94640; 96365; 96375; 97110-GP; 97116-GP; 97161-GP; 99285; A9270-GY; C8929; G8978-CK-GP; G8979-CJ-GP; J0360; J0692; J2185; J2930; J3370; Q9957

== ENCOUNTER 2017-01-03 07:50 | Inpatient (IN) | payer MEDICARE ==
--- NOTE | ~2017-01-03 | DS ---
Discharge Summary [facility] [address] [place]. [address] NAME: RUKHSANA ROSE : 37 STATUS : DIS IN PAT#: [id number] AGE: 81 ADM/REG DATE : 01/03/17 MR#: [id number] REPORT SERV DATE: 01/13/17 DICTATED BY: BUBBA SALINAS DATE: 01/12/17 REPORT STATUS : Draft TRANSCRIBED BY: MODL DATE: 01/12/17 ADMISSION DATE: 01/03/2017 DISCHARGE DATE: 01/12/2017 DISCHARGE DIAGNOSES: 1. Community-acquired pneumonia with sputum positive for Bordetella bronchiseptica. 2. Acute exacerbation of chronic obstructive pulmonary disease. 3. Acute exacerbation of bronchiectasis. 4. Oropharyngeal dysphagia. 5. Chronic hypoxemic respiratory failure, on O2. 6. Chronic diastolic heart failure. 7. Chest pain, thought to be musculoskeletal, in part if not whole. 8. Symptomatic extended spectrum beta-lactamase Escherichia coli urinary tract infection. 9. Chronic lymphocytic leukemia, by CBC. 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 11.Monoclonal gammopathy. IgG kappa. 12.Type 2 diabetes. 13.Hypertension, systemic. 14.Hypertension, pulmonary. 15.Atrial fibrillation, not on anticoagulation because of high HAS-BLED score. 16.Coronary artery disease by CT imaging. 17.Chronic pain syndrome. 18.Anxiety. 19.Panic. 20.Venous insufficiency. 21.Osteoporosis with compression fracture history. OPERATIONS AND PROCEDURES: None. PRESENT ILLNESS: This is a 81-year-old white female, who was triaged in the emergency room on 01/03/2017 at 0659 hours complaining of rib pain. Her admission vital signs; blood pressure 151/83, temperature 97.7, pulse 82, respirations 20, and O2 saturation 91% on 3 L. In the emergency room, her evaluation included a urinalysis which was suspicious for a urinary tract infection. A chest x-ray was done that showed central venous congestion and bibasilar atelectasis. Given her comorbidities, it was felt that admission was warranted. She was referred to the Hospitalist Service. She was seen by Dr. Alexa Valladares and admitted as described on admission history and physical examination. Additional history included rib pain with coughing. She had a cough with copious purulent sputum and subjective fever. In addition, she had some dysuria. Additional history included a hospitalization here 11/05/2016 to 11/09/2016 with primary diagnoses of acute L1 compression fracture, acute encephalopathy, and ESBL E. coli urinary tract infection versus colonization. Discharge Summary [place] [address] [place]. [address] NAME: RUKHSANA ROSE : 37 STATUS : DIS IN PAT#: [id number] AGE: 81 ADM/REG DATE : 01/03/17 MR#: [id number] REPORT SERV DATE: 01/13/17 DICTATED BY: BUBBA SALINAS DATE: 01/12/17 REPORT STATUS : Draft TRANSCRIBED BY: MODL DATE: 01/12/17 She was here 12/01/2016 to 12/07/2016 with diagnoses: 1. COPD exacerbation. 2. Acute on chronic respiratory failure. ADDITIONAL HISTORY: Per Dr. Valladares. PHYSICAL EXAMINATION: Per Dr. Valladares. ADMISSION LABORATORY: Per Dr. Valladares. HOSPITAL COURSE: She was admitted by Dr. Valladares with, 1. Bilateral rib cage pain. 2. Cough with purulent sputum and suspected pneumonia. 3. Urinary tract infection. 4. Chronic diastolic heart failure. 5. All of this occurring in the setting of the above-mentioned comorbidities. She was admitted to [address] [place] [address]. Cultures were obtained. Because of history of ESBL infection, she was started on meropenem. Additional imaging was ordered. Her hospitalist care was by Dr. Gallardo through 01/08/2017 as outlined on interim summary dictated on that date. Her subsequent hospital care from 12/09/2016 to discharge was by the undersigned. A CTA of her chest showed no pulmonary embolus. There was interval worsening of bibasilar airspace consolidation concerning for pneumonia or aspiration as opposed to atelectasis. There was severely enlarged pulmonary trunk suggesting pulmonary hypertension. There was three-vessel coronary atherosclerosis. Culture of her urine subsequently grew ESBL E. coli. One blood culture was no growth. A second blood culture grew Coag-negative Staph, thought to be a contaminant. A sputum done on 01/03/2017 had a sparse growth of Bordetella bronchiseptica. This was also sensitive to meropenem. During the course of her hospitalization, she was treated for seven days with meropenem, O2, bronchodilator therapy, Mucinex, and prednisone. During this time, her pulmonary symptoms improved; and by the time of discharge, she had a lingering cough, but minimal sputum production. O2 sats were satisfactory at 97% on 2 L. Of note, a procalcitonin was 0.06 on admission and subsequent procalcitonins were essentially the same. A C-reactive protein was 7.3. A followup chest x-ray done on the 01/09/2017 showed only bibasilar atelectatic changes. From previous CT imaging, she is known to have bronchiectasis. I had concerns regarding her swallow function. A modified barium swallow study did demonstrate some mild oropharyngeal dysphagia with flash penetration with thin liquids. She also exhibited prolonged chewing Discharge Summary [address] [place]. [address] NAME: RUKHSANA ROSE : 37 STATUS : DIS IN PAT#: [id number] AGE: 81 ADM/REG DATE : 01/03/17 MR#: [id number] REPORT SERV DATE: 01/13/17 DICTATED BY: BUBBA SALINAS DATE: 01/12/17 REPORT STATUS : Draft TRANSCRIBED BY: DANIELITO DATE: 01/12/17 with a cracker. She was able to protect her airway. It was recommended she have mechanical soft consistencies, chopped meats with gravy, thin liquids, and crushed meds in pudding. She received an adequate course of meropenem for her E. coli ESBL urinary tract infection as well as her pulmonary diagnoses as described. On review, it was noted that she had an elevated white blood cell count with a predominance of lymphocytes. It was thought she likely had CLL. An immunofixation was checked with findings as noted above. Gammaglobulin levels were checked and were all low; IgG 239, IgA less than 8, and IgM 19. [facility] consultation was obtained. She was seen by Dr. Ibarra. He noted she had been seen previously by Dr. Gavino Figueroa at [facility] several years ago, but that she did not keep outpatient followup. His impression was: 1. CLL. No indication for therapy at this time. 2. Hypogammaglobulinemia with recurrent infections and bronchiectasis. He thought she might benefit from IVIG and that this would be pursued in the office setting. It was not felt that she would benefit from an acute dose of IVIG. She continued to have some chest pain with coughing. She had initially been given OxyContin and gabapentin by Dr. Gallardo. This did not provide significant relief. When given p.r.n. hydrocodone, she obtained better relief and was able to rest. Troponins in hospital were 0.06, 0.05, 0.06, and 0.07; and given her clinical findings, it was not felt that an ischemia evaluation was indicated at this time. She was seen by Physical Therapy. jail facility discharge was recommended. This was discussed with the patient and with her caregiver, her granddaughter. It was elected to pursue [facility] at discharge. I also discussed code status with the patient and she wanted to be full code. I discussed the possibility of home with hospice, which she did not want to pursue at this time. Today, it is felt, she has achieved a level of improvement and stability where she could be safely transferred to [facility]. DISCHARGE MEDICATIONS: Her discharge medications will be Lovenox 40 mg subcu daily, Mucinex 1200 mg every 12 hours, NovoLog correction 2 before meals, Levemir 8 units at bedtime, hydrocodone 7.5/325 every 6 hours as needed for pain, prednisone 10 mg for two days and 5 mg for two days and then stop, Brovana nebs q.12 hours, budesonide nebs 0.5 mg q.12 hours, DuoNebs q.4 hours, Tylenol 650 mg every 4 hours as needed, artificial tears as needed, hypoglycemia protocol with glucagon 1 mg IM or glucose tabs 3, Zofran 4 mg p.o. or sublingually as needed for nausea, MiraLAX and milk of magnesia as needed for constipation, Norvasc 5 mg daily for systolic blood pressure greater than 150, Protonix 40 mg before breakfast and supper, aspirin 81 mg daily, Florastor 250 mg twice daily, Lasix 40 mg daily for edema, O2 to keep sats greater than or equal to 92. It was recommended that her speech therapy diet recommendations be followed and that she have speech therapy, physical therapy, and occupational therapy at rehab. Discharge Summary [facility] [address] [place]. [address] NAME: RUKHSANA ROSE : 37 STATUS : DIS IN PAT#: [id number] AGE: 81 ADM/REG DATE : 01/03/17 MR#: [id number] REPORT SERV DATE: 01/13/17 DICTATED BY: BUBBA SALINAS DATE: 01/12/17 REPORT STATUS : Draft TRANSCRIBED BY: DANIELITO DATE: 01/12/17 Discharge time greater than 30 minutes. DD/DANIELITO Bubba Salinas M.D. / [id number] CC: Bubba Salinas M.D. [facility]
--- NOTE | ~2017-01-03 | CN ---
Consultation Report [facility] [address] [place]. [address] NAME: RUKHSANA ROSE : 37 STATUS : ADM IN [facility]#: [id number] AGE: 81 ADM/REG DATE : 01/03/17 MR#: [id number] REPORT SERV DATE: 01/11/17 DICTATED BY: MINO PUTNAM DATE: 01/11/17 REPORT STATUS : Draft TRANSCRIBED BY: MODL DATE: 01/11/17 CONSULTATION DATE OF CONSULTATION: REASON FOR REFERRAL: CLL and immunodeficiency. HISTORY OF PRESENT ILLNESS: Ms. Rose is a 81-year-old woman. She was seen by my partner, Dr. Anderson Figueroa at [facility] several years ago. She did not keep outpatient followup. She is now admitted for the third time and is here with respiratory infections. She does have COPD that has worsened. I personally reviewed her CT scan which shows bronchiectasis. She has a history of CLL for many years. She was unable to give me the precise duration. This however has been quite stable and she has never required treatment. Currently, her white blood cell count is 24.9, hemoglobin 11.5, and platelets 273,000. Dr. Salinas checked the immunoglobulin levels. Her IgG is 239, IgA undetectable, and IgM 19, which were all low and outside the normal limit. She has heart failure that is diastolic. The diabetes has been poorly controlled. REVIEW OF SYSTEMS: Positive for fatigue and dyspnea and is otherwise negative. PHYSICAL EXAMINATION: GENERAL: Reveals an obese woman in no acute distress. HEART: She has a regular rate and rhythm. LUNGS: There are coarse breath sounds and wheezes bilaterally. DATA REVIEW: As per the HPI. I personally reviewed her CT which showed bronchiectasis and reviewed all of her hospital records that were summarized above as well as old laboratory studies and x-rays in the computer. ASSESSMENT: 1. CLL. No indication for therapy at this time. 2. Hypogammaglobulinemia. She certainly has had recurrent infections with evidence of bronchiectasis. This is the type of patient who can sometimes benefit from IVIG replacement. My recommendation is that we see her in the office to consider this. An acute dose of IVIG would not shorten her current illness. LAURY Consultation Report [facility] [address] [place] [address] NAME: RUKHSANA ROSE : 37 STATUS : ADM IN PAT#: [id number] AGE: 81 ADM/REG DATE : 01/03/17 MR#: [id number] REPORT SERV DATE: 01/11/17 DICTATED BY: MINO PUTNAM DATE: 01/11/17 REPORT STATUS : Draft TRANSCRIBED BY: MODL DATE: 01/11/17 Mino Putnam M.D. / [id number] CC: Jaime Salinas M.D.
--- NOTE | ~2017-01-03 | IDS ---
Interim Discharge Summary [facility] [address] [place]. [address] NAME: RUKHSANA ROSE : 39 STATUS : ADM IN PAT#: [id number] AGE: 81 ADM/REG DATE : 01/03/17 MR#: [id number] REPORT SERV DATE: 01/08/17 DICTATED BY: MOOSE AGUILAR DATE: 01/08/17 REPORT STATUS : Draft TRANSCRIBED BY: MODL DATE: 01/08/17 ADMISSION DATE: 01/03/2017 DISCHARGE DATE: WORKING DIAGNOSES: 1. Community-acquired pneumonia with preliminary sputum cultures growing gram-negative rods. 2. Extended-spectrum beta-lactamase Escherichia coli urinary tract infection. 3. Acute chronic obstructive pulmonary disease exacerbation, present on admission, now back at baseline on 3 L of oxygen. 4. Chronic hypoxic respiratory failure, on 3 L of oxygen at baseline. 5. Chest wall pain. 6. Generalized weakness. CONSULTANTS: None. PROCEDURES: None. HOSPITAL COURSE: This is a 81-year-old lady who was admitted to the hospital with the aforementioned diagnoses. For details, please refer to H and P by Dr. Valladares. In summary, the patient was admitted and was started on IV meropenem. The patient has remained stable on meropenem and her urine cultures grew ESBL E coli that is sensitive to meropenem. Sputum cultures showed a gram-negative rods and I am still awaiting final culture results. In terms of COPD exacerbation, the patient did well with IV steroids, and the patient is currently on p.o. steroids. The patient has COPD with chronic hypoxic respiratory failure on 3 L at baseline, and she is back at her baseline for the COPD. Throughout the hospital stay, the patient has been persistently complaining of chest wall pain without clear etiology. The patient has been started on OxyContin sustained release scheduled as well as gabapentin with minimal response. The patient does appear fairly comfortable when she is in the room by herself. I wonder if she may have a prodromal neuropathic pain for possible shingles, but I am yet to see any rash. As of today, the patient is close to being medically ready for discharge. The patient was seen and evaluated by Physical Therapy, who recommended the patient to be discharged to SNF. The patient and her granddaughter refuse SNF and wish to be discharged home with home health. However, I feel that the patient is a high risk for readmission and that she will benefit most from a more intense rehab that she can receive at SNF. I have discussed with the patient who voiced understanding. Case management is on her case to sort out discharge plans. CAREN/DANIELITO Moose Aguilar MD / [id number] Interim Discharge Summary [address] [address] NAME: RUKHSANA ROSE : 37 STATUS : ADM IN PAT#: [id number] AGE: 81 ADM/REG DATE : 01/03/17 MR#: [id number] REPORT SERV DATE: 01/08/17 DICTATED BY: MOOSE AGUILAR DATE: 01/08/17 REPORT STATUS : Draft TRANSCRIBED BY: DANIELITO DATE: 01/08/17 CC: Moose Aguilar MD
--- NOTE | ~2017-01-03 | HP ---
History And Physical [place] [id number] [place]. [address] NAME: RUKHSANA ROSE : 39 STATUS : ADM IN [facility]#: [id number] AGE: 81 ADM/REG DATE : 01/03/17 MR#: [id number] REPORT SERV DATE: 01/03/17 DICTATED BY: SYLVESTER VALLADARES DATE: 01/03/17 REPORT STATUS : Draft TRANSCRIBED BY: MODPhan DATE: 01/03/17 DATE OF ADMISSION: 01/03/2017 CHIEF COMPLAINT: Multiple. HISTORY OF PRESENT ILLNESS: The patient is a very pleasant, but hard of hearing, 81-year-old white female. She reports she had diarrhea for about a week. She has not had any about two days, but her most marked complaint today is that she has pain underneath her ribcage on bilateral sides in the anterior region of her chest. She states it hurts when she coughs, hurts when she breathes, and she has been coughing up purulent sputum, which I did witness in the emergency department. It is sort of a yellow, copious tee sputum that she is coughing up. She states she has baseline shortness of breath and also a baseline cough that she struggles with daily. She denies overt abdominal pain. She denies chest pain, other than the pleuritic pain that she is describing. She has a history of multidrug-resistant Escherichia coli ESBL in her urine when she was actually here in 10/2016. Most of her complaints revolve around the pain along her lower rib cage. She states she has had fever but she did not document it, and I cannot really understand if she took her temperature or not, but she was afebrile here in the emergency department. She has no family with her, although she lives with a granddaughter. Her granddaughter recently had some surgery and is unable to provide any history. PAST MEDICAL HISTORY: Extensive. Please see below. 1. COPD, on 3 L of O2. 2. Pulmonary hypertension. 3. CLL. 4. Recurrent urinary tract infections with ESBL species. 5. Diastolic CHF. 6. LVH with EF of 55-60. 7. Atrial fibrillation, but deemed not a candidate for anticoagulation. 8. Dysphagia. 9. Steroid-induced diabetes mellitus. 10.Chronic pain. 11.Anxiety. 12.Panic attacks. 13.Previous compression fracture. SURGICAL HISTORY: It sounds like she has had some left eye surgery. FAMILY HISTORY: Positive for leukemia and lung cancer. ALLERGIES: MORPHINE, PENICILLIN, AND LATEX. SOCIAL HISTORY: She never smoked herself, but she had a strong history of secondhand tobacco exposure. She does not use any alcohol. She is to be a sitter and a data warehouse architect. REVIEW OF SYSTEMS: History And Physical [address] [address] NAME: RUKHSANA ROSE : 39 STATUS : ADM IN [facility]#: [id number] AGE: 81 ADM/REG DATE : 01/03/17 MR#: [id number] REPORT SERV DATE: 01/03/17 DICTATED BY: SYLVESTER VALLADARES DATE: 01/03/17 REPORT STATUS : Draft TRANSCRIBED BY: DANIELITO DATE: 01/03/17 Full 10-point review of systems obtained. Pertinent positives mentioned in the HPI. PHYSICAL EXAMINATION: CURRENT VITAL SIGNS: BP is 133/61, she is 98% on 3 L, temp 97.9, pulse 75, respirations 19. GENERAL: Frail-appearing white female. HEENT: Normocephalic, atraumatic. Throat is clear. NECK: Supple. HEART: Distant S1 and S2. LUNGS: She has extensive rhonchorous breath sounds in all lung schwartz. She has a weak cough and she does not clear very well with coughing. She also has some expiratory wheezing. ABDOMEN: Soft, nondistended. She has reproducible pain on palpation of both of her lower rib cages in the front similar to the pain that she is experiencing. Her abdomen is otherwise soft. EXTREMITIES: Warm and dry. She has a 2+ pulse in the right foot and an absent pulse in the left foot, but she has normal strength and tone in her legs bilaterally. NEUROLOGIC: She is alert. She is oriented to person, place, and time. Speech is intact. She has symmetrical strength on her extremities. LAB AND X-RAY: Chemistry panel shows sodium 141, potassium 3.2, chloride 100, CO2 of 30, BUN and creatinine are 21 and 1.05. Glucose is 113. Troponin is 0.09. Mag is 2.0. Chest x- ray shows shallow inspiration with some mild central venous congestion and bibasilar atelectasis. BNP is 337. White count 23.7, H and H 11 and 33, and platelets are 267. Coags are normal. Urinalysis shows 182 whites, clumps, and large leukocyte esterase. EKG shows atrial fibrillation, but rate controlled and no acute ST-T wave changes. ASSESSMENT/PLAN: 1. Bilateral rib cage pain. This seems to be her presenting complaint. She is in significant pain, it is reproducible on palpation. It is pleuritic in nature. I think it is likely secondary to coughing, however, must consider other sources also to include possible pneumonia and pulmonary embolus, although I do not think it would be reproducible upon palpation. I am going to get a stat D-dimer. If her D-dimer is negative, we will likely proceed with a noncontrast CT of the chest. If it is positive, we may do CTA. Provide some p.r.n. hydrocodone and I am going to continue her Tessalon Perles and go from there. 2. Cough with purulent sputum, white count of 23.7. Certainly, pneumonia is in the differential; I do not appreciate that on her chest x-ray, but she sounds very rhonchorous today. I am going to provide DuoNebs, Pulmicort, and some Solu-Medrol for possible chronic obstructive pulmonary disease exacerbation, but also consider pneumonia in the differential. She is going to be covered with meropenem for her previous history of extended-spectrum beta-lactamases. Anyway, as she has a positive urinalysis, I think in addition to nebulized therapy and antibiotics, depending on what her D-dimer is, we are going to image her chest additionally. This will determine whether or not to use contrast or not. We will follow up her with a CT scan today in some form. Hopefully with bronchodilator therapy and antibiotic, she will improve. We will also send off sputum cultures as the sputum does indeed look very purulent. 3. Urinary tract infection as evidenced by elevated white count along with positive History And Physical [address] [place]. [address] NAME: RUKHSANA ROSE : 39 STATUS : ADM IN [facility]#: [id number] AGE: 81 ADM/REG DATE : 01/03/17 MR#: [id number] REPORT SERV DATE: 04/12/17 DICTATED BY: SYLVESTER VALLADARES DATE: 01/03/17 REPORT STATUS : Draft TRANSCRIBED BY: DANIELITO DATE: 01/03/17 urinalysis, history of extended-spectrum beta-lactamases in the past. We will need to cover with meropenem and follow up urine culture. 4. History of diastolic heart failure. Her BNP is up a bit, but she does not look particularly wet today on exam. I think most of her changes are consistent with chronic obstructive pulmonary disease and possible pneumonia. 5. History of atrial fibrillation, rate controlled. 6. Steroid-induced diabetes in the past. We will add some sliding scale to her regimen. 7. History of hypertension. We will continue her home medications. 8. 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 She has elected not to pursue further treatment. 9. Deep venous thrombosis prophylaxis. We will provide subcu heparin. 10.Code status. I discussed with the patient her code status. Given her multitude of medical problems and her frail state, she does desire full code status which I have indicated in her chart. 11.Disposition, pending above the aforementioned plan and workup. GURMEET/DANIELITO Sylvester Valladares M.D. / [id number] CC: Neymar Madera M.D.
[2017-01-03 07:49] LABS: BASOPHILS 0.3 %; BASOPHILS ABSOLUTE 0.06 10/3/uL (0.0-0.16); EOSINOPHILS 0 %; HEMATOCRIT 33.3 % (36.0-48.0); HEMOGLOBIN 11.2 g/dL (12.0-16.0); IMMATURE GRANULOCYTES ABSOLUTE 0.94 10/3/uL (0.0-0.11); LYMPHOCYTES 29.2 %; MANUAL DIFF NO %; MEAN CORPUS HGB CONC 33.6 g/dL (32.0-36.0); MEAN CORPUSCULAR HEMOGLOB 27.5 pg (26.0-34.0); MEAN CORPUSCULAR VOLUME 81.6 fL (80-100); MEAN PLATELET VOLUME 9.6 fL (9.2-13.0); MONOCYTES 4.6 %; MONOCYTES ABSOLUTE 1.09 10/3/uL (0.21-1.20); NEUTROPHILS 61.9 %; NEUTROPHILS ABSOLUTE 14.68 10/3/uL (2.02-8.40); PLATELET COUNT 267 10/3/uL (150-400); RBC DISTRIBUTION WIDTH 16.8 % (12.0-16.0); RED CELL COUNT 4.08 10/6/uL (4.0-5.6); WHITE BLOOD CELLS 23.7 10/3/uL (4.5-10.5)
[~2017-01-03 07:50] MED LIST changes: +BISR PR; +D.O.S.100 MG PO; +MOMUD PO; +NORCO1 TA2 PO; +SENTAB PO; +V2 PO; +ZANTAC 150 PO
[2017-01-03 07:56] LABS: INTERNATIONAL NORMAL RATI 1.2 UNITS (-); PROTIME (NOT ORD) 14.6 SEC (12.0-14.5)
[2017-01-03 08:01] LABS: PARTIAL THROMBO TIME 22.6 SEC (22.5-37.2)
[2017-01-03 08:04] LABS: BUN (BLOOD UREA NITROGEN) 21 MG/DL (6-23); CALCIUM, SERUM 9.2 MG/DL (8.5-10.4); CHLORIDE, SERUM 100 MMOL/L (96-112); CO2 (CARBON DIOXIDE) 30 MMOL/L (24-34); CREATININE 1.05 MG/DL (0.55-1.02); GFR AFRICAN AMERICAN 58 ML/MIN (>=60); GFR NON AFRICAN AMERICAN 50 ML/MIN (>=60); GLUCOSE, SERUM 113 MG/DL (60-99); POTASSIUM, SERUM 3.2 MMOL/L (3.5-5.3); SODIUM, SERUM 141 MMOL/L (135-148)
[2017-01-03 08:06] LABS: CHEST PAIN PROFILE TAT 0 Hrs 23 Mins; TROPONIN I 0.09 NG/ML (<0.05)
[2017-01-03 08:19] LABS: ER DIFF TAT 0 Hrs 36 Mins; IMMATURE GRANS ABSOLUTE (CALC) 0.47 10/3/uL (0.0-0.11); LYMPHOCYTES 26 %; LYMPHOCYTES ABSOLUTE (CALC) 6.16 10/3/uL (0.67-4.30); METAMYELOCYTES 2 %; MONOCYTES 2 %; MONOCYTES ABSOLUTE (CALC) 0.47 10/3/uL (0.21-1.20); NEUTROPHILS ABSOLUTE (CALC) 16.59 10/3/uL (2.02-8.40); PLATELET ESTIMATE ADQ (ADEQUATE); RBC MORPHOLOGY NORM (NORMAL); SEGMENTED NEUTROPHIL (0) 70 %; TOTAL NUCLEATED CELLS 100
[2017-01-03 09:15] LABS: ASCORBIC ACID (UR NOT ORDER) NEG (NEG); BILIRUBIN, URINE NEGATIVE (NEG); ER URINALYSIS TAT 0 Hrs 28 Mins; KETONE, URINE NEGATIVE (NEG); LEUKOCYTE ESTERASE(NOT OR LARGE (NEG); NITRITE (URINE) NEG (NEG)
[2017-01-03 09:16] LABS: WBC (NOT ORDERED) (RFLEX) > 182 (0-5)
[2017-01-03] MEDS ORDERED: *UNABLE1 (10:25)
[2017-01-03] MEDS ORDERED: SPIRO25 PO (10:26)
[2017-01-03] MEDS ORDERED: ZOFRAN4 PO (10:26)
[2017-01-03] MEDS ORDERED: CARDURA1 MG PO (10:26)
[2017-01-03] MEDS ORDERED: COREG3 PO (10:26)
[2017-01-03] MEDS ORDERED: PREDNISONE (10:26)
[2017-01-03] MEDS ORDERED: TESS PO (10:26)
[2017-01-03] MEDS ORDERED: VENTOLIN HFA INH (10:26)
[2017-01-03] MEDS ORDERED: L20 PO (10:27)
[2017-01-03] MEDS ORDERED: PROTONIX PO (10:27)
[2017-01-03] MEDS ORDERED: NORV5 PO (10:27)
[2017-01-03 19:37] LABS: BE (BASE EXCESS) 3.6 MEQ/L (0 +/- 2.5); CARBOXYHEMOGLOBIN 1.2 % (0-3); DEVICE NC; HCO3 (ACTUAL BICARBONATE) 27.6 MEQ/L (23-27); HEMOBLOGIN CONTENT 11.6 G/DL (12-16); INSTRUMENT SERIAL # 8087; METHEMOGLOBIN 0.1 % (0-3); O2 CONTENT 15.1 VOL% (18-24); PCO2 (CO2 TENSION) 40 MMHG (35-45); PO2 (O2 TENSION) 68 MMHG (79-93); SAMPLE Arterial; pH 7.46 (7.37-7.43)
[2017-01-04 06:57] LABS: HEMOGLOBIN 9.8 g/dL (12.0-16.0); MEAN CORPUS HGB CONC 33.2 g/dL (32.0-36.0); MEAN CORPUSCULAR HEMOGLOB 26.9 pg (26.0-34.0); MEAN PLATELET VOLUME 9.8 fL (9.2-13.0); PLATELET COUNT 236 10/3/uL (150-400); RBC DISTRIBUTION WIDTH 16.7 % (12.0-16.0); RED CELL COUNT 3.64 10/6/uL (4.0-5.6)
[2017-01-04 06:58] LABS: HEMATOCRIT 29.5 % (36.0-48.0); MANUAL DIFF YES %
[2017-01-04 07:17] LABS: A/G RATIO 0.9 (0.7-1.9); ALBUMIN 2.6 G/DL (3.5-5.0); BUN (BLOOD UREA NITROGEN) 20 MG/DL (6-23); CALCIUM, SERUM 9.3 MG/DL (8.5-10.4); CHLORIDE, SERUM 95 MMOL/L (96-112); CO2 (CARBON DIOXIDE) 28 MMOL/L (24-34); CREATININE 0.83 MG/DL (0.55-1.02); GFR AFRICAN AMERICAN 78 ML/MIN (>=60); GFR NON AFRICAN AMERICAN 67 ML/MIN (>=60); GLOBULIN 2.9 G/DL (2.5-4.1); SGOT(AST) 16 U/L (5-40); SGPT(ALT) 17 U/L (5-65); TOTAL BILIRUBIN 0.4 MG/DL (0-1.2); TOTAL PROTEIN 5.5 G/DL (6.0-8.5)
[2017-01-04 07:18] LABS: ALKALINE PHOSPHATASE 104 U/L (45-117); GLUCOSE, SERUM 209 MG/DL (60-99); SODIUM, SERUM 133 MMOL/L (135-148); TROPONIN I 0.06 NG/ML (<0.05)
[2017-01-04 07:38] LABS: ANISOCYTOSIS 1+ (5-10/OIF) (0-5/OIF); BAND NEUTROPHILS 5 %; LYMPHOCYTES 25 %; LYMPHOCYTES ABSOLUTE (CALC) 3.75 10/3/uL (0.67-4.30); MACROCYTES 1+ (5-10/OIF) (0-5/OIF); METAMYELOCYTES 2 %; MONOCYTES 5 %; MONOCYTES ABSOLUTE (CALC) 0.75 10/3/uL (0.21-1.20); PLATELET ESTIMATE ADQ (ADEQUATE); POLYCHROMASIA 1+ (2-5/OIF) (0-1/OIF); SEGMENTED NEUTROPHIL (0) 63 %; TOTAL NUCLEATED CELLS 100
[2017-01-05 05:31] LABS: HEMATOCRIT 31.2 % (36.0-48.0); HEMOGLOBIN 10.2 g/dL (12.0-16.0); MEAN CORPUS HGB CONC 32.7 g/dL (32.0-36.0); MEAN CORPUSCULAR HEMOGLOB 26.8 pg (26.0-34.0); MEAN CORPUSCULAR VOLUME 82.1 fL (80-100); MEAN PLATELET VOLUME 9.7 fL (9.2-13.0); PLATELET COUNT 260 10/3/uL (150-400); RBC DISTRIBUTION WIDTH 16.7 % (12.0-16.0); WHITE BLOOD CELLS 18.3 10/3/uL (4.5-10.5)
[2017-01-05 05:32] LABS: MANUAL DIFF YES %
[2017-01-05 05:36] LABS: BUN (BLOOD UREA NITROGEN) 23 MG/DL (6-23); CALCIUM, SERUM 9.5 MG/DL (8.5-10.4); CHLORIDE, SERUM 97 MMOL/L (96-112); CO2 (CARBON DIOXIDE) 30 MMOL/L (24-34); CREATININE 0.84 MG/DL (0.55-1.02); GFR AFRICAN AMERICAN 77 ML/MIN (>=60); GFR NON AFRICAN AMERICAN 66 ML/MIN (>=60); GLUCOSE, SERUM 192 MG/DL (60-99); POTASSIUM, SERUM 3.7 MMOL/L (3.5-5.3); SODIUM, SERUM 138 MMOL/L (135-148)
[2017-01-05 06:38] LABS: PROCALCITONIN 0.06 ng/mL (<0.5)
[2017-01-05 07:16] LABS: BAND NEUTROPHILS 6 %; IMMATURE GRANS ABSOLUTE (CALC) 0.37 10/3/uL (0.0-0.11); LYMPHOCYTES 11 %; LYMPHOCYTES ABSOLUTE (CALC) 2.01 10/3/uL (0.67-4.30); METAMYELOCYTES 2 %; MONOCYTES 3 %; MONOCYTES ABSOLUTE (CALC) 0.55 10/3/uL (0.21-1.20); NEUTROPHILS ABSOLUTE (CALC) 15.37 10/3/uL (2.02-8.40); PLATELET ESTIMATE ADQ (ADEQUATE); SEGMENTED NEUTROPHIL (0) 78 %; TOTAL NUCLEATED CELLS 100
[2017-01-05 07:17] LABS: POLYCHROMASIA 1+ (2-5/OIF) (0-1/OIF); TOXIC GRANULATION 1+
[2017-01-05] MEDS ORDERED: BISR PR (13:48)
[2017-01-05] MEDS ORDERED: V2 PO (13:48)
[2017-01-05] MEDS ORDERED: ASAB PO (13:48)
[2017-01-05] MEDS ORDERED: NORCO1 TA2 PO (13:49)
[2017-01-05] MEDS ORDERED: MOMUD PO (13:49)
[2017-01-05] MEDS ORDERED: D.O.S.100 MG PO (13:49)
[2017-01-05] MEDS ORDERED: PERCOCET 7.5/321 TAB PO (13:50)
[2017-01-05] MEDS ORDERED: FLORASTOR250 MG PO (13:50)
[2017-01-05] MEDS ORDERED: SENTAB PO (13:50)
[2017-01-05] MEDS ORDERED: ZANTAC 150 PO (13:50)
[2017-01-05] MEDS ORDERED: NEUR300 PO (14:28)
[2017-01-05] MEDS ORDERED: L40 PO (14:29)
[2017-01-07 07:18] LABS: HEMOGLOBIN 11.5 g/dL (12.0-16.0); MEAN CORPUS HGB CONC 33.4 g/dL (32.0-36.0); MEAN CORPUSCULAR HEMOGLOB 27.4 pg (26.0-34.0); MEAN CORPUSCULAR VOLUME 82.1 fL (80-100); MEAN PLATELET VOLUME 9.8 fL (9.2-13.0); PLATELET COUNT 273 10/3/uL (150-400); RBC DISTRIBUTION WIDTH 16.3 % (12.0-16.0); RED CELL COUNT 4.19 10/6/uL (4.0-5.6); WHITE BLOOD CELLS 24.9 10/3/uL (4.5-10.5)
[2017-01-07 07:30] LABS: CALCIUM, SERUM 9.5 MG/DL (8.5-10.4); CHLORIDE, SERUM 94 MMOL/L (96-112); CO2 (CARBON DIOXIDE) 34 MMOL/L (24-34); CREATININE 0.78 MG/DL (0.55-1.02); GFR AFRICAN AMERICAN 84 ML/MIN (>=60); GFR NON AFRICAN AMERICAN 72 ML/MIN (>=60); POTASSIUM, SERUM 3.2 MMOL/L (3.5-5.3); SODIUM, SERUM 139 MMOL/L (135-148)
[2017-01-07 07:33] LABS: BUN (BLOOD UREA NITROGEN) 27 MG/DL (6-23); GLUCOSE, SERUM 100 MG/DL (60-99)
[2017-01-07 07:34] LABS: HEMATOCRIT 34.4 % (36.0-48.0); MANUAL DIFF YES %
[2017-01-07 08:00] LABS: IMMATURE GRANS ABSOLUTE (CALC) 0.25 10/3/uL (0.0-0.11); LYMPHOCYTES 24 %; LYMPHOCYTES ABSOLUTE (CALC) 5.98 10/3/uL (0.67-4.30); METAMYELOCYTES 1 %; MONOCYTES 8 %; MONOCYTES ABSOLUTE (CALC) 1.99 10/3/uL (0.21-1.20); NEUTROPHILS ABSOLUTE (CALC) 16.68 10/3/uL (2.02-8.40); SEGMENTED NEUTROPHIL (0) 67 %; TOTAL NUCLEATED CELLS 100
[2017-01-07 08:01] LABS: PLATELET ESTIMATE ADQ (ADEQUATE); RBC MORPHOLOGY NORM (NORMAL)
[2017-01-07 08:07] LABS: PROCALCITONIN 0.07 ng/mL (<0.5)
[2017-01-08 06:57] LABS: HEMATOCRIT 32.9 % (36.0-48.0); HEMOGLOBIN 10.8 g/dL (12.0-16.0); MEAN CORPUS HGB CONC 32.8 g/dL (32.0-36.0); MEAN CORPUSCULAR HEMOGLOB 27.3 pg (26.0-34.0); MEAN CORPUSCULAR VOLUME 83.3 fL (80-100); MEAN PLATELET VOLUME 9.9 fL (9.2-13.0); PLATELET COUNT 220 10/3/uL (150-400); RBC DISTRIBUTION WIDTH 16.4 % (12.0-16.0); RED CELL COUNT 3.95 10/6/uL (4.0-5.6); WHITE BLOOD CELLS 23.1 10/3/uL (4.5-10.5)
[2017-01-08 07:00] LABS: MANUAL DIFF YES %
[2017-01-08 07:14] LABS: BUN (BLOOD UREA NITROGEN) 30 MG/DL (6-23); CALCIUM, SERUM 9.1 MG/DL (8.5-10.4); CHLORIDE, SERUM 95 MMOL/L (96-112); CO2 (CARBON DIOXIDE) 36 MMOL/L (24-34); CREATININE 0.75 MG/DL (0.55-1.02); GFR AFRICAN AMERICAN 88 ML/MIN (>=60); GFR NON AFRICAN AMERICAN 76 ML/MIN (>=60); POTASSIUM, SERUM 3.8 MMOL/L (3.5-5.3); SODIUM, SERUM 139 MMOL/L (135-148)
[2017-01-08 07:16] LABS: GLUCOSE, SERUM 70 MG/DL (60-99)
[2017-01-08 07:46] LABS: BAND NEUTROPHILS 1 %; IMMATURE GRANS ABSOLUTE (CALC) 0.46 10/3/uL (0.0-0.11); LYMPHOCYTES 30 %; LYMPHOCYTES ABSOLUTE (CALC) 6.93 10/3/uL (0.67-4.30); METAMYELOCYTES 2 %; MONOCYTES 5 %; MONOCYTES ABSOLUTE (CALC) 1.16 10/3/uL (0.21-1.20); NEUTROPHILS ABSOLUTE (CALC) 14.55 10/3/uL (2.02-8.40); SEGMENTED NEUTROPHIL (0) 62 %; TOTAL NUCLEATED CELLS 100
[2017-01-08 07:47] LABS: PLATELET ESTIMATE ADQ (ADEQUATE); RBC MORPHOLOGY NORM (NORMAL)
[2017-01-09 16:29] LABS: C-REACTIVE PROTEIN 7.3 MG/L (<8.0); CHLORIDE, SERUM 95 MMOL/L (96-112); CREATININE 1.11 MG/DL (0.55-1.02); FERRITIN 224 NG/ML (8-252); GFR AFRICAN AMERICAN 55 ML/MIN (>=60); GFR NON AFRICAN AMERICAN 47 ML/MIN (>=60); IMMUNOGLOBULIN A < 8 MG/DL (70-420); IMMUNOGLOBULIN G 239 MG/DL (673-1464); IMMUNOGLOBULIN M 19 MG/DL (30-270); SODIUM, SERUM 135 MMOL/L (135-148)
[2017-01-09 16:33] LABS: BUN (BLOOD UREA NITROGEN) 37 MG/DL (6-23); CO2 (CARBON DIOXIDE) 31 MMOL/L (24-34); GLUCOSE, SERUM 274 MG/DL (60-99); POTASSIUM, SERUM 4.9 MMOL/L (3.5-5.3); TROPONIN I 0.07 NG/ML (<0.05)
[2017-01-11 08:25] LABS: HEMOGLOBIN 9.7 g/dL (12.0-16.0); MEAN CORPUS HGB CONC 32.8 g/dL (32.0-36.0); MEAN CORPUSCULAR HEMOGLOB 27.5 pg (26.0-34.0); MEAN CORPUSCULAR VOLUME 83.9 fL (80-100); MEAN PLATELET VOLUME 10.8 fL (9.2-13.0); PLATELET COUNT 196 10/3/uL (150-400); RBC DISTRIBUTION WIDTH 17.1 % (12.0-16.0); RED CELL COUNT 3.53 10/6/uL (4.0-5.6); WHITE BLOOD CELLS 21.3 10/3/uL (4.5-10.5)
[2017-01-11 08:26] LABS: HEMATOCRIT 29.6 % (36.0-48.0); MANUAL DIFF YES %
[2017-01-11 08:49] LABS: BAND NEUTROPHILS 6 %; IMMATURE GRANS ABSOLUTE (CALC) 0.43 10/3/uL (0.0-0.11); LYMPHOCYTES 35 %; LYMPHOCYTES ABSOLUTE (CALC) 7.46 10/3/uL (0.67-4.30); METAMYELOCYTES 1 %; MONOCYTES 3 %; MONOCYTES ABSOLUTE (CALC) 0.64 10/3/uL (0.21-1.20); MYELOCYTES 1 %; NEUTROPHILS ABSOLUTE (CALC) 12.78 10/3/uL (2.02-8.40); PLATELET ESTIMATE ADQ (ADEQUATE); SEGMENTED NEUTROPHIL (0) 54 %; TOTAL NUCLEATED CELLS 100
[2017-01-11 08:50] LABS: ANISOCYTOSIS 1+ (5-10/OIF) (0-5/OIF); MICROCYTES 1+ (5-10/OIF) (0-5/OIF)
[2017-01-11 08:51] LABS: HELMET CELLS OCC (0-2/OIF); POIKILOCYTOSIS 1+ (5-10/OIF) (0-5/OIF); POLYCHROMASIA 1+ (2-5/OIF) (0-1/OIF); SMUDGE CELLS FEW
[2017-01-11 08:54] LABS: CHLORIDE, SERUM 101 MMOL/L (96-112); CO2 (CARBON DIOXIDE) 34 MMOL/L (24-34); CREATININE 0.65 MG/DL (0.55-1.02); GFR AFRICAN AMERICAN 98 ML/MIN (>=60); GFR NON AFRICAN AMERICAN 84 ML/MIN (>=60); SODIUM, SERUM 141 MMOL/L (135-148)
[2017-01-11 08:55] LABS: BUN (BLOOD UREA NITROGEN) 33 MG/DL (6-23); GLUCOSE, SERUM 71 MG/DL (60-99); POTASSIUM, SERUM 3.9 MMOL/L (3.5-5.3)
[2017-01-15] MEDS ORDERED: DUONEB INH (11:46)
[2017-01-15] MEDS ORDERED: BROVANA15 MCG INH (11:47)
[2017-01-15] MEDS ORDERED: MUCINEX1200 MG PO (11:47)
[2017-01-15] MEDS ORDERED: BUDESONIDE INH (11:51)
[2017-01-15] MEDS ORDERED: ACIDOPHILU2 PO (11:53)
[2017-01-15] MEDS ORDERED: P5 PO (11:54)
[2017-01-15] MEDS ORDERED: HUMALOG SC (11:55)
[2017-01-15] MEDS ORDERED: LEVEMIR SC ×2 (11:56→11:57)
[2017-01-15] MEDS ORDERED: LOVENOX40 SC (11:57)
[2017-01-15] MEDS ORDERED: MIRALAX POWDER1 PKT PO (12:01)
[2017-01-21] MEDS ORDERED: VIBRATAB100 MG PO (15:52)
[2017-01-21] MEDS ORDERED: P10 PO (15:53)
[2017-01-21] MEDS ORDERED: MONUROL PO (15:53)
[2017-01-21] MEDS ORDERED: KDUR10 PO (15:53)
[2017-01-21] MEDS ORDERED: CARDCD120 PO (15:54)
[2017-01-21] MEDS ORDERED: SEROQUEL25 PO (15:54)
[2017-01-21] MEDS ORDERED: MYCOSCROI TOP (15:55)
[2017-01-21] MEDS ORDERED: DUONEB INH (15:59)
== END 2017-01-12 12:29 | DRG 190 ==
LOC: ER 07:50 → 4SO 10:08 → 6NO 10:49
PROVIDERS: Internal Medicine; Nurse Practitioner
DX: J44.0 Chronic obstructive pulmonary disease with (acute) lower respiratory infection (principal); J15.6 Pneumonia due to other Gram-negative bacteria; J96.11 Chronic respiratory failure with hypoxia; C91.10 Chronic lymphocytic leukemia of B-cell type not having achieved remission; D80.1 Nonfamilial hypogammaglobulinemia; N39.0 Urinary tract infection, site not specified; I27.2 Other secondary pulmonary hypertension; I50.32 Chronic diastolic (congestive) heart failure; B96.20 Unspecified Escherichia coli [E. coli] as the cause of diseases classified elsewhere; Z99.81 Dependence on supplemental oxygen; R07.89 Other chest pain; J44.1 Chronic obstructive pulmonary disease with (acute) exacerbation; R13.12 Dysphagia, oropharyngeal phase; G89.4 Chronic pain syndrome; F41.9 Anxiety disorder, unspecified; I48.91 Unspecified atrial fibrillation; E66.9 Obesity, unspecified; E11.9 Type 2 diabetes mellitus without complications; I25.10 Atherosclerotic heart disease of native coronary artery without angina pectoris; M81.0 Age-related osteoporosis without current pathological fracture; I87.2 Venous insufficiency (chronic) (peripheral); H91.90 Unspecified hearing loss, unspecified ear; Z87.310 Personal history of (healed) osteoporosis fracture; Z16.12 Extended spectrum beta lactamase (ESBL) resistance
CPT/HCPCS: 36600; 71010; 71275; 74230; 80048; 80053; 81001; 82728; 82784; 82805; 82962; 83605; 83735; 83880; 84145; 84484; 85025; 85379; 85610; 85730; 86140; 86334; 87040; 87070; 87077; 87086; 87186; 87205; 92611-GN; 93005; 94640; 97110-GP; 97162-GP; 97530-GP; 99285; A9270-GY; G8978-CL-GP; G8979-CJ-GP; G8996-CJ-GN; G8997-CJ-GN; G8998-CJ-GN; J2185; J2930; Q9967